=== PATIENT | female | born 1955 | race Caucasian/White ===

== ENCOUNTER → 2021-02-13 | Outpatient (CLI) | payer OTHER | LOC: EXRD 13:23 | DX: N28.9 Disorder of kidney and ureter, unspecified (principal) | CPT/HCPCS: 76775 ==

== ENCOUNTER 2021-12-27 12:17 | Inpatient (IN) | payer MEDICARE, OTHER ==
[~2021-12-27] VITALS: Ht 165.1 cm; Wt 136.1 kg
[2021-12-27 13:05] LABS: RED BLOOD COUNT 5.06 M/UL (4.00-5.10); WHITE BLOOD COUNT 7.9 K/UL (4.5-11.0)
[2021-12-27 13:37] LABS: BUN/CREATININE RATIO 19 (0-10)
[2021-12-27] MEDS ORDERED: GLIMEPIRIDE4 MG PO (19:36)
[2021-12-27] MEDS ORDERED: SIMVASTATIN20 MG PO (19:36)
[2021-12-27] MEDS ORDERED: LOSARTAN POTAS100 MG PO (19:36)
[2021-12-27] MEDS ORDERED: ELIQUIS5 MG PO (19:36)
[2021-12-27] MEDS ORDERED: METOPROLOL SUCC50 MG PO (19:37)
[2021-12-27] MEDS ORDERED: AMLODIPINE BESY10 MG PO (19:37)
[2021-12-27] MEDS ORDERED: METFORMIN HCL1000 MG PO (19:37)
[2021-12-27] MEDS ORDERED: FENOFIBRATE134 MG PO (19:38)
[2021-12-27] MEDS ORDERED: NOVOLIN R100 UNIT/1 INJ (19:39)
[2021-12-27] MEDS ORDERED: NOVOLIN N100 UNIT/1 SQ (19:39)
[2021-12-27] MEDS ORDERED: DIABETA 5 MG TAB5 MG PO (20:35)
[2021-12-28 04:19] LABS: HEMOGLOBIN 12.9 gm/dl (12.3-15.3); RED BLOOD COUNT 4.42 M/UL (4.00-5.10); WHITE BLOOD COUNT 5.1 K/UL (4.5-11.0)
[2021-12-28 05:01] LABS: BUN/CREATININE RATIO 21 (0-10)
--- NOTE | 2021-12-28 09:58 | NUR ---
CALLED CONSULT TO DR MCCANN
[2021-12-28] MEDS ORDERED: METOPROLOL SUC100 MG PO (15:48)
== END 2021-12-28 16:34 | disposition home or self-care (01) | DRG 178 ==
LOC: ER1 12:17 → CDU 15:23 → PROG CARE 20:34
PROVIDERS: Student in an Organized Health Care Education/Training Program; ADMIT Internal Medicine
PROC: 8E0ZXY6 Isolation (ICD-10-PCS; 2021-12-27)
PROC: B24BZZZ Ultrasonography of Heart with Aorta (ICD-10-PCS; principal; 2021-12-28)
DX: U07.1 COVID-19 (principal); Z68.42 Body mass index [BMI] 45.0-49.9, adult; I10 Essential (primary) hypertension; E66.01 Morbid (severe) obesity due to excess calories; M19.011 Primary osteoarthritis, right shoulder; E78.5 Hyperlipidemia, unspecified; I48.0 Paroxysmal atrial fibrillation; E11.9 Type 2 diabetes mellitus without complications; Z79.01 Long term (current) use of anticoagulants; Z79.4 Long term (current) use of insulin; Z90.49 Acquired absence of other specified parts of digestive tract; Z88.5 Allergy status to narcotic agent; Z88.8 Allergy status to other drugs, medicaments and biological substances; Z80.1 Family history of malignant neoplasm of trachea, bronchus and lung; Z80.8 Family history of malignant neoplasm of other organs or systems
CPT/HCPCS: ECHO; 36415; 71045; 80048; 80053; 80061; 82550; 82553; 82962; 83036; 83735; 84439; 84443; 84484; 85025; 85379; 93005; 93306; 99285; U0002